=== PATIENT | male | born 1970 | race Caucasian/White ===

== ENCOUNTER 2018-02-12 10:37 | Emergency (ER) | payer BC ==
[~2018-02-12] VITALS: Ht 167.6 cm; Wt 74.4 kg
[~2018-02-12 10:37] MED LIST: LUNESTA3 MG PO; NORCO 5/3251 TABLET PO; TRICOR48 MG PO; VALIUM5 MG PO
[2018-02-12 11:08] LABS: HEMATOCRIT 42.7 % (38.0-50.0); HEMOGLOBIN 14.9 G/DL (12.5-16.6); MCH 30.1 PG (29.0-34.0); MCHC 34.9 G/DL (30.0-36.0); MCV 86.3 FL (86-99); PLATELET COUNT 337 K/uL (156-360); RBC DIS.WIDTH-CV 12.7 % (11.8-14.6); RBC DIS.WIDTH-SD 39.5 % (39-53); RED BLOOD COUNT 4.95 M/uL (4.00-5.50)
[2018-02-12 11:19] LABS: CHLORIDE 105 mEq/L (99-109); POTASSIUM 4.1 mEq/L (3.7-5.4); SODIUM 143 mEq/L (136-147)
[2018-02-12 11:21] LABS: GLUCOSE 86 mg/dL (70-99)
[2018-02-12 11:25] LABS: CREATININE 0.8 mg/dL (0.6-1.3); GFR ESTIMATE (CALCULATED) > 59 mL/min/ (58.99-99999); UREA NITROGEN (BUN) 9 mg/dL (9-23)
[2018-02-12 11:33] LABS: TROP-I INTERPRETATION NEGATIVE; TROPONIN-I < 0.01 ng/mL (0.0-0.30)
[2018-02-12 14:09] LABS: ALBUMIN 4.3 g/dL (3.2-4.8)
[2018-02-12 14:12] LABS: TOTAL PROTEIN 6.6 g/dL (6.4-8.3)
[2018-02-12 14:14] LABS: TOTAL BILIRUBIN 0.6 mg/dL (0.0-1.0)
[2018-02-12 14:15] LABS: ALKALINE PHOSPHATASE 104 IU/L (3-129)
[2018-02-12 14:17] LABS: AST (GOT) 25 IU/L (2-34); DIRECT BILIRUBIN 0.2 mg/dL (0.0-0.3)
[2018-02-12 14:18] LABS: ALT (GPT) 36 IU/L (3-49); LIPASE 44 U/L (1.0-51.0)
[2018-02-12 14:46] LABS: TROP-I INTERPRETATION NEGATIVE; TROPONIN-I < 0.01 ng/mL (0.0-0.30)
[2018-02-12 16:52] VITALS: BP 123/66
== END 2018-02-12 16:52 | disposition home or self-care (01) ==
LOC: EME 10:37
PROVIDERS: Emergency Medicine
DX: R07.9 Chest pain, unspecified (principal); Z82.49 Family history of ischemic heart disease and other diseases of the circulatory system; F17.200 Nicotine dependence, unspecified, uncomplicated; Z98.84 Bariatric surgery status; Z90.49 Acquired absence of other specified parts of digestive tract; Z88.0 Allergy status to penicillin
CPT/HCPCS: 71046; 71275; 80048; 80076; 83690; 84484; 85027; 93005